=== PATIENT | female | born 1970 | race Caucasian/White ===

== ENCOUNTER 2020-12-09 19:44 | Emergency (ER) | payer OTHER, SELFPAY ==
[2020-12-09 19:48] VITALS: BP 119/76; PULSE 87; RESP 18; TEMP 36.9; O2SAT 99; BMI 28.4
[2020-12-09 20:12] LABS: Glucose Urine UA NEG (NEG); Leukocyte Esterase Urine 1+ (NEG); Nitrite Urine NEG (NEG); UACC Culture Trigger YES; Urine Blood NEG (NEG); Urine Ketones NEG (NEG); Urine Protein NEG (NEG-TRACE)
[2020-12-09 20:20] LABS: Appearance Urine CLEAR; Color Urine YELLOW
[2020-12-09 20:35] LABS: Bacteria Urine 1+ /LPF; RBC Urine 0 /HPF (0); Squamous Epithelial Cell Urine 2+ /LPF
[2020-12-09 20:36] LABS: MANUAL DIFF FLAG NO
[2020-12-09 20:37] LABS: Basophils Absolute Auto 0.1 X10*3/uL (0.0-0.2); Basophils Percent Auto 0.8 % (0-2); Eosinophils Absolute Auto 0.2 X10*3/uL (0.0-0.4); Eosinophils Percent Auto 3.9 % (0-4); Hemoglobin 8.1 g/dl (12.0-16.0); Lymphocytes Absolute Auto 2.1 X10*3/uL (1.2-4.9); Lymphocytes Percent Auto 34.1 % (20-40); Mean Corpuscular Hemoglobin 21.5 pg (27.0-33.0); Mean Corpuscular Volume 71.8 fL (80-98); Mean Platelet Volume 10.3 fL (9.4-12.3); Monocytes Absolute Auto 0.4 X10*3/uL (0.1-1.2); Neutrophils Absolute Auto 3.3 X10*3/uL (2.0-8.3); Neutrophils Percent Auto 54.2 % (45-73); Platelet Count 433 X10*3/uL (160-400); Red Blood Count 3.76 X10*6/uL (4.20-5.50); Red Cell Distribution Width 20.7 % (11.0-16.0); White Blood Count 6.2 X10*3/uL (4.8-10.8)
[2020-12-09 21:01] LABS: Alanine Aminotransferase 7 U/L (0-31); Alkaline Phosphatase 38 U/L (39-117); Anion Gap 13 (12-20); Aspartate Amino Transferase 14 U/L (5-31); Bilirubin Total 0.3 mg/dL (0.0-1.0); Blood Urea Nitrogen 16 mg/dL (9-16); Calcium 8.6 mg/dL (8.4-10.2); Carbon Dioxide 22 mmol/L (22-29); Chloride 110 mmol/L (96-108); Creatinine Clr Calc Pharmacy 53.1; Estimated Glomerular Filt Rate 42; Glucose Random 104 mg/dL (60-115); Potassium 4.3 mmol/L (3.3-5.1); Sodium 141 mmol/L (135-145)
--- NOTE | 2020-12-09 23:24 | ED_ITS ---
HPI - General Adult General Chief complaint: General Medical Stated complaint: multiple complaints Source: patient Mode of arrival: ambulatory Limitations: no limitations History of Present Illness HPI narrative: 50-year-old female presents with headache, dizziness, fatigue, currently being treated for abnormal vaginal bleeding with hormone therapy with history of blood transfusion. She does have a history of migraines, and this headache feel similar to prior migraines. Does not report photophobia, but does state to see spots. She also reports urinary frequency however is not producing a large volume. She reports that her vaginal bleeding has stopped, has been on this hormone replacement since November 17. She is visiting from [place] and will be returning to [place] on Sunday. She does not report any chest pain or pressure, palpitations, shortness of breath, abdominal pain, abdomina distention, nausea, vomiting, diarrhea, constipation, hematuria, and edema. Onset (ago): week(s) (Several, 3 days of headache) Location: head Severity: moderate Severity scale (1-10): 7 Quality: aching and constant Pain Consistency: constant Relieving factors: none Exacerbating factors: movement and other Associated symptoms: denies other symptoms Treatments prior to arrival: NSAID Related Data Previous Rx's Medication Instructions Recorded [id number]-[id number] 1 cap PO Q8H PRN #7 cap 12/10/20 [Fioricet] cefuroxime axetil 500 mg PO Q12H 7 Days #14 tab 12/10/20 Allergies Allergy/AdvReac Type Severity Reaction Status Date / Time acetaminophen [From Percocet] AdvReac Palpitation Verified 12/09/20 19:48 s oxycodone [From Percocet] AdvReac Palpitation Verified 12/09/20 19:48 s Review of Systems Review of Systems: Constitutional: Positive headache, positive migraine aura, No Fever, No Chills ENT/Mouth: No Ear Pain, No Hoarseness, No sore throat Eyes: No Eye Pain, No Swelling, No Redness, No Foreign Body Cardiovascular: No Chest Pain, No SOB Respiratory: No Cough, No Dyspnea Gastrointestinal: No Nausea, No Vomiting, No Diarrhea, No abdominal Pain Genitourinary: Positive Dysuria, No Hematuria Musculoskeletal: No joint pain, No Myalgias, No Joint Swelling Skin: No Skin lacerations, No rash Neuro: No Weakness, No Numbness, No Paresthesias, No Loss of Consciousness, No Dizziness, No Headache Psych: No Anxiety/Panic, No Depression Heme/Lymph: no easy bruising, no Lymphadenopathy Endocrine: No Polyuria, No Polydipsia Yes all other systems are reviewed and are negative [facility] Past Medical History Attestation statement: The following information was validated with the patient. Source: old records reviewed Medical History No known health problems Surgical History History of appendectomy Social History Social History Advance Directives: No Advance Directives Information Provided: Yes Patient : No Physical Exam Vital Signs: Vital Signs: Last Vital Signs Temp 98.4 F 12/09/20 19:48 Pulse 87 12/09/20 19:48 Resp 18 12/09/20 19:48 BP 119/76 12/09/20 19:48 Pulse Ox 99 12/09/20 19:48 Body Mass Index 28.4 Appearance: Alert. Oriented X3. No acute distress. Head: Normal external exam. Normocephalic. Atraumatic. No Wallace signs noted. No raccoon eyes noted Eyes: PERRLA. EOMI. Conjunctiva and sclera normal. Eyelids normal. ENT: TM's Normal. Pharynx normal. Uvula midline. Moist mucous membranes. No trismus noted. No drooling noted. No muffled voice noted. Neck: Normal inspection. Neck supple. No adenopathy. Thyroid Normal. No meningeal signs. No neck mass noted. CVS: Normal heart rate and rhythm. Heart sound normal. No murmurs noted. Pulses equal to all extremities. Respiratory: No respiratory distress. Painless inspiration. Breath sounds normal. No wheezes/rales/rhonchi noted. Chest nontender. No accessory muscle usage noted or decreased air movement noted. Abdomen: Soft and nontender. Bowel sounds normal in all 4 quadrants. No distention noted. No organomegaly noted. No visible injury noted. Back: No CVA tenderness. Full range of motion noted. Skin: Skin warm and dry. Normal skin color. Normal skin turgor. No rashes/lesions/lacerations noted. Extremities: No lower extremity edema. Extremities exhibit normal range of motion. Extremities nontender. Neuro: cranial nerves 2-12 intact, no focal neural deficits, strength 5/5 to all extremities, No motor deficit. No sensory deficit. Course Course Course Narrative: 50-year-old female presents with multiple complaints. Will treat migraine with Toradol, Benadryl, Zofran, Fioricet and sumatriptan. Will give 1 L of fluid. Patient is currently under her physician's care for menorrhagia, started hormone therapy for abnormal vaginal bleeding. This was started approximately 1 month ago. While patient's H&H 8.1/27.2 this value is not low enough for transfusion. She has been transfused in the past when her hemoglobin was 6. She primarily receives all of her treatment in [place], she is visiting here with her family and plans on departing on Sunday back to [place]. Urinalysis positive for UTI. Will give cefuroxime. Patient was advised to follow-up with her ethylene plant helper when she arrived back to [place]. 1:28 a.m.. Patient stated that she feels much better, still has a slight he adache. Patient does understand discharge instructions, Google translate utilized for discharge instructions, neck fitter utilized for all correspondence. Medical Decision Making Lab Data Result diagrams: 12/09/20 20:32 12/09/20 20:32 Labs: Lab Results 12/09/20 12/09/20 12/09/20 Range/Units 20:03 20:32 20:32 WBC 6.2 (4.8-10.8) X10*3/uL RBC 3.76 L (4.20-5.50) X10*6/uL Hgb 8.1 L (12.0-16.0) g/dl Hct 27.0 L (37-47) % MCV 71.8 L (80-98) fL MCH 21.5 L (27.0-33.0) pg MCHC 30.0 L (31.0-35.0) g/dl RDW 20.7 H (11.0-16.0) % Plt Count 433 H (160-400) X10*3/uL MPV 10.3 (9.4-12.3) fL Immature Gran % (Auto) 0.0 (0.0-0.4) % Neut % (Auto) 54.2 (45-73) % Lymph % (Auto) 34.1 (20-40) % [place] % (Auto) 7.0 (2-11) % Eos % (Auto) 3.9 (0-4) % Baso % (Auto) 0.8 (0-2) % Lymph # (Auto) 2.1 (1.2-4.9) X10*3/uL [place] # (Auto) 0.4 (0.1-1.2) X10*3/uL Eos # (Auto) 0.2 (0.0-0.4) X10*3/uL Baso # (Auto) 0.1 (0.0-0.2) X10*3/uL Abs Immat Gran (auto) 0.00 (0.00-0.03) X10*3/uL Absolute Neuts (auto) 3.3 (2.0-8.3) X10*3/uL Absolute Nucleated RBC 0.000 (0.0-0.012) X10*3/uL Nucleated RBC % (auto) 0.0 (0.0-0.2) /100WBC Sodium 141 (135-145) mmol/L Potassium 4.3 (3.3-5.1) mmol/L Chloride 110 H (96-108) mmol/L Carbon Dioxide 22 (22-29) mmol/L Anion Gap 13 (12-20) BUN 16 (9-16) mg/dL Creatinine 1.32 (0.5-1.4) mg/dL Estim Creat Clear Calc 53.1 Estimated GFR 42 Random Glucose 104 (60-115) mg/dL Calcium 8.6 (8.4-10.2) mg/dL Total Bilirubin 0.3 (0.0-1.0) mg/dL AST 14 (5-31) U/L ALT 7 (0-31) U/L Alkaline Phosphatase 38 L (39-117) U/L Total Protein 7.0 (6.5-8.0) g/dL Albumin 4.0 (3.5-5.0) g/dL Urine Color YELLOW Urine Appearance CLEAR Urine pH 7.0 (5.0-8.0) Ur Specific [place] 1.010 (1.005-1.025) Urine Protein NEG (NEG-TRACE) MG/DL Urine Glucose (UA) NEG (NEG) MG/DL Urine Ketones NEG (NEG) MG/DL Urine Blood NEG (NEG) Urine Nitrite NEG (NEG) Ur Leukocyte Esterase 1+ H (NEG) Urine RBC 0 (0) /HPF Urine WBC 1-4 (0-4) /HPF Ur Squamous Epith Cells 2+ /LPF Urine Bacteria 1+ /LPF Discharge Plan Discharge Clinical Impression: Chronic blood loss anemia Migraines Qualifiers: Migraine type: with aura Status migrainosus presence: with status migrainosus Intractability: intractable Qualified Code(s): G43.111 - Migraine with aura, intractable, with status migrainosus Urinary tract infection Qualifiers: Urinary tract infection type: acute cystitis Hematuria presence: with hematuria Qualified Code(s): N30.01 - Acute cystitis with hematuria Patient Disposition: Home, Self-Care Instructions: Urinary Tract Infection in Women (ED), Migraine Headache (ED), Anemia (ED) Additional Instructions: Fue evaluado por m?ltiples quejas. Contin?e con el seguimiento con Uroginecolog?a cuando regrese a [place] el cherry. Le recetamos Fioricet para las migra?as. Candy Kitchen luis fernando medicamento seg?n las rayne caciones para aliviar ebony dania de emilee. Puede considerar hacer un seguimiento con Neurolog?a cuando regrese a [place]. Contin?e tomando el antibi?theresa cefuroxima 500 mg dos veces al d?a pati los pr?ximos 7 d?as para lezama infecci?n del tracto urinario. Beber mucho l?quido. Lorenzo por elegir luis fernando departamento de emergencias para lezama evaluaci?n. Marci un seguimiento con lezama m?dico de atenci?n primaria seg?n sea necesario. Regrese al departamento de emergencias por cualquier s?ntoma nuevo, preocupante o que empeore You were evaluated for multiple complaints. Please continue to follow up with Urogynecology when you return back to [place] on Sunday. We prescribed Fioricet for migraines. Please take this medication as directed to help with her headaches. You may consider following up with Neurology when you return to [place]. Please continue to take the antibiotic cefuroxime 500 mg twice a day for the next 7 days for your urinary tract infection. Drink plenty of fluids. Thank you for choosing this emergency department for evaluation. Please follow-up with primary care physician as needed. Return to the emergency department for any new, concerning, or worsening symptoms. Prescriptions: New cefuroxime axetil 500 mg tablet 500 mg PO Q12H 7 Days Qty: 14 RF: 0 [id number] [Fioricet] 50-300-40 mg capsule 1 cap PO Q8H PRN (Reason: Migraine) Qty: 7 RF: 0
[2020-12-10] MEDS: ondansetron HCL 4 MG/2 ML VIAL IVPUSH (00:39)
[2020-12-10] MEDS: Ketorolac Tromethamine 30 MG/ML VIAL IVPUSH (00:39)
[2020-12-10] MEDS: diphenhydrAMINE HCL 50 MG/ML VIAL 25 MG IVPUSH (00:40)
[2020-12-10] MEDS: 0.9 % Sodium Chloride 1,000 ML 999 ML IVCONT (00:40)
[2020-12-10] MEDS: Butalb/Acetamin/Caff 50/325/40 TABLET 1 TAB PO (00:40)
== END 2020-12-10 01:42 | disposition home or self-care (01) ==
PROVIDERS: Emergency Provider Emergency Medicine Emergency Medical Services
DX: G43.111 Migraine with aura, intractable, with status migrainosus (principal); N30.01 Acute cystitis with hematuria; D50.0 Iron deficiency anemia secondary to blood loss (chronic); N92.0 Excessive and frequent menstruation with regular cycle
CPT/HCPCS: 36415; 80053; 81001; 81003; 85025; 87086; 87088; 96361; 96372; 96374; 96375; 99283; 99284; J1200; J1885; J2405; J3030